=== PATIENT | male | born 1960 | race Caucasian/White ===

== ENCOUNTER 2018-07-20 10:50 | Emergency (ER) | payer OTHER ==
[2018-07-20 12:35] VITALS: BP 132/73
[2018-07-20] MEDS ORDERED: Tetan/Diph/Pertus SYR(Tdap)* 0.5 ML SYR(BOOSTRIX) use SYR IM ONE (12:58)
--- NOTE | 2018-07-20 13:45 | UC ---
Eye Complaint HPI - HPI Summary HPI Summary: Pt c/o left eye pain, redness and discharge (in morning only). Two days ago, pt was doing work on car and had jaden metal flakes "fall into left eye. Pt has been flushing eye out several time a day with little to no improvement. Denies FB feeling or significant pain or change in vision. - History of Current Complaint Chief Complaint: UCEye Stated Complaint: LEFT EYE Time Seen by Provider: 07/20/18 12:41 Hx Obtained From: Patient Onset/Duration: Sudden Onset, Lasting Days, Still Present Timing: Constant Severity Initially: Mild Severity Currently: Mild Pain Intensity: 2 Pain Scale Used: 0-10 Numeric Character: Dull Aggravating Factor(s): Nothing Alleviating Factor(s): Nothing Associated Signs And Symptoms: Positive: Drainage (Purulent) Related History: Similar Episode - Risk Factors Penetrating Injury Risk Factor: Negative Globe Rupture Risk Factors: Negative Acute Glaucoma Risk Factors: Negative Optic Artery Occlusion Risk Factors: Negative - Allergies/Home Medications Allergies/Adverse Reactions: Allergies Allergy/AdvReac Type Severity Reaction Status Date / Time No Known Allergies Allergy Verified 07/20/18 12:34 PMH/Surg Hx/FS Hx/Imm Hx Previously Healthy: Yes - Surgical History Surgical History: None - Family History Known Family History: Positive: Cardiac Disease - Social History Occupation: Employed Full-time Lives: With Family Alcohol Use: None Substance Use Type: None Smoking Status (MU): Light Every Day Tobacco Smoker Amount Used/How Often: 1/2ppd Have You Smoked in the Last Year: Yes Household Exposure Type: Cigarettes - Immunization History Most Recent Tetanus Shot: unsure Vaccination Up to Date: No Review of Systems All Other Systems Reviewed And Are Negative: Yes Constitutional: Positive: Negative Skin: Positive: Negative Eyes: Positive: Drainage - left, Eye Redness - left ENT: Positive: Negative Respiratory: Positive: Negative Cardiovascular: Positive: Negative Gastrointestinal: Positive: Negative Genitourinary: Positive: Negative Motor: Positive: Negative Neurovascular: Positive: Negative Musculoskeletal: Positive: Negative Neurological: Positive: Negative Psychological: Positive: Negative Is Patient Immunocompromised?: No Physical Exam Triage Information Reviewed: Yes Appearance: Well-Appearing Vital Signs: Initial Vital Signs Temp 97.2 F 07/20/18 12:29 Pulse 70 07/20/18 12:29 Resp 18 07/20/18 12:29 BP 132/73 07/20/18 12:29 Pulse Ox 99 07/20/18 12:29 Vital Signs Reviewed: Yes Eyes: Positive: Other: - left eye scleritis, no FB seen with magnifying light. Pt was referred to eye provider. ENT Exam: Normal Dental Exam: Normal Neck exam: Normal Respiratory: Positive: No respiratory distress Musculoskeletal Exam: Normal Neurological Exam: Normal Psychological Exam: Normal Skin Exam: Normal Eye Complaint Course/Dx - Differential Dx/Diagnosis Differential Diagnosis/HQI/PQRI: Corneal Abrasion, Foreign Body Provider Diagnosis: Left eye injury, Scleritis of left eye Discharge - Sign-Out/Discharge Documenting (check all that apply): Patient Departure All imaging exams completed and their final reports reviewed: No Studies - Discharge Plan Condition: Stable Disposition: HOME Prescriptions: Polymyx/Trimethoprim OPTH* [Polytrim OPHTH*] 2 drop LEFT EYE Q6H 7 Days #1 btl Patient Education Materials: Eye Pain (ED) Referrals: [facility] [place] [facility] [Outside] - If Needed Moustapha Gonzalez OD [Doctor of Osteopathy] - If Needed Kevin Jon MD [Primary Care Provider] - If Needed Additional Instructions: Please follow up with your PCP and and eye care provider as needed. - Billing Disposition and Condition Condition: STABLE Disposition: Home - Attestation Statements Provider Attestation: I was available for consult. This patient was seen by the DAMARI. The patient was not presented to, seen by, or examined by me. -Vicki
== END 2018-07-20 13:13 | disposition home or self-care (01) ==
LOC: UCCORT 10:50
DX: S05.92XA Unspecified injury of left eye and orbit, initial encounter (principal); H15.002 Unspecified scleritis, left eye; F17.210 Nicotine dependence, cigarettes, uncomplicated
CPT/HCPCS: 90471; 90715; 99202; G0463